=== PATIENT | female | born 1965 | race Caucasian/White ===

== ENCOUNTER 2019-06-05 14:38 | Emergency (ER) | payer SELFPAY ==
[~2019-06-05] VITALS: Ht 152.4 cm; Wt 72.7 kg
[~2019-06-05 14:38] MED LIST: LOSA25TA41 PO
[2019-06-05 15:11] LABS: GLUCOSE,POINT OF CARE 93 MG/DL (70-110)
[2019-06-05] MEDS ORDERED: EMPA10TA PO (15:13)
[2019-06-05] MEDS ORDERED: HYDR25TA PO (15:13)
[2019-06-05] MEDS ORDERED: ASPI-556 PO (15:13)
[2019-06-05] MEDS ORDERED: TRAZ-220 PO (15:13)
[2019-06-05] MEDS ORDERED: VENL50TA44 PO (15:13)
[2019-06-05] MEDS ORDERED: GABA-531 PO (15:13)
[2019-06-05] MEDS ORDERED: TELM40 PO (15:13)
[2019-06-05] MEDS ORDERED: SIMV-260 PO (15:13)
[2019-06-05 17:32] VITALS: BP 139/70
== END 2019-06-05 18:46 | disposition home or self-care (01) ==
LOC: EMS 14:41
DX: S01.21XA Laceration without foreign body of nose, initial encounter (principal); F41.9 Anxiety disorder, unspecified; F32.9 Major depressive disorder, single episode, unspecified; E11.9 Type 2 diabetes mellitus without complications; I10 Essential (primary) hypertension; Z79.899 Other long term (current) drug therapy; Z79.82 Long term (current) use of aspirin; W22.8XXA Striking against or struck by other objects, initial encounter; Y93.89 Activity, other specified; Y92.89 Other specified places as the place of occurrence of the external cause; Y99.8 Other external cause status
CPT/HCPCS: 12011